=== PATIENT | male | born 1980 | race Caucasian/White ===

== ENCOUNTER 2017-11-17 05:47 | Observation (INO) ==
[2017-11-17 06:56] LABS: Basophils % 0.4 %; Eosinophils % 0.3 %; Hematocrit 47.8 % (37.5-50.1); Hemoglobin 16.6 g/dL (12.9-16.9); Immature Granulocytes % 0.4 % (0-4); Lymphocytes # 1.1 K/mcL (0.6-4.6); Lymphocytes % 13.6 %; Mean Corpuscular HGB Conc 34.7 g/dL (31.6-35.5); Mean Corpuscular Hemoglobin 31.1 pg (28.0-33.3); Mean Corpuscular Volume 89.5 fL (83.0-100.0); Mean Platelet Volume 10.3 fL (9.4-12.4); Monocytes # 0.8 K/mcL (0.0-1.3); Monocytes % 10.2 %; Neutrophils # 5.8 K/mcL (1.6-8.9); Platelet Count 186 K/mcL (140-400); Red Blood Count 5.34 M/mcL (4.19-5.50); Red Cell Distribution Width 13.2 % (11.5-14.5); Segmented Neutrophils % 75.1 %
--- NOTE | 2017-11-17 07:01 | Emergency Department Note ---
Disposition Clinical Impression: FABRICE (acute kidney injury) Disposition: Admitted As Inpatient Condition: Fair Referrals: Julissa Sahu CNP [Primary Care Provider] - Forms: ED Satisfaction Letter General Adult HPI - General Chief complaint: ED Nausea/Vomiting/Diarrhea Stated complaint: dizziness,vomiting Time Seen by Provider: 11/17/17 06:38 Source: patient Mode of arrival: ambulatory Limitations: no limitations Nursing Notes Reviewed: Yes Vital Signs Reviewed: Yes - History of Present Illness HPI Narrative: 37 year old male presents with dizziness and nausea. pt worked outside yesterday with temperature 90 degrees. He sweat a lot. He drank around 10 gallons water yesterday and this morning. Pt woke up this morning with dizziness , nausea and severe muscle cramping. No vomiting. Onset (ago): hour(s) (4) Pain Scale: 5 - Related Data Home Medications Medication Instructions Recorded Confirmed Lisinopril [Zestril] 10 mg PO DAILY 04/21/16 11/17/17 Allergies Allergy/AdvReac Type Severity Reaction Status Date / Time No Known Allergies Allergy Verified 04/21/16 19:00 Constitutional: Denies: fever, chills, weakness, weight change Eyes: Denies: eye pain, eye discharge, vision change ENT ED: Denies: ear pain, throat pain, dental pain, hearing loss, epistaxis, congestion, dysphagia Cardiovascular: Denies: chest pain, palpitations, dyspnea on exertion, edema, syncope Respiratory: Denies: cough, dyspnea, wheezes, hemoptysis, stridor Gastrointestinal: Denies: abdominal pain, nausea, vomiting, diarrhea, constipation, hematemesis, melena, hematochezia Genitourinary: Denies: urgency, dysuria, frequency, hematuria Musculoskeletal: Denies: back pain, neck pain, arthralgia, myalgia Integumentary: Denies: rash, abrasion, lesions Neurological: Denies: headache, weakness, numbness, paresthesias, confusion, abnormal gait, vertigo Psychiatric: Denies: anxiety, depression, suicidal thoughts, homicidal thoughts , auditory hallucinations, visual hallucinations Endocrine: Denies: fatigue Hematological/Lymphatic: Denies: easy bleeding, easy bruising Allergic/Immunologic: Denies: facial swelling, urticaria Past Medical History - Past Medical History Medical history: Reports: hypertension Psychiatric history: Reports: no psych history - Social History Smoking Status: Never smoker Smokeless Tobacco Status: No Alcohol use: Reports: none Drug use: Reports: none Physical Exam - General Limitations: no limitations General appearance: alert - Head Head exam: atraumatic, normocephalic, normal inspection - Eye Eye exam: Present: normal appearance, PERRL, EOMI - ENT ENT exam: normal exam, normal oropharynx, mucous membranes moist - Neck Neck exam: Present: normal inspection, full ROM, trachea midline - Chest Chest inspection: Present: normal inspection, symmetric chest wall rise - Respiratory Respiratory exam: Present: normal lung sounds bilaterally - Cardiovascular Cardiovascular exam: Present: regular rate, normal rhythm, normal heart sounds - Abdominal Exam Abdominal exam: Present: soft, Non-Tender. Absent: tenderness, distention, guarding, rebound, rigidity - Extremities Exam Extremities exam: Present: normal inspection, full ROM. Absent: tenderness, pedal edema - Back Exam Back exam: Present: normal inspection, full ROM. Absent: tenderness - Neurological Exam Neurological exam: Present: alert, oriented X3 - Psychiatric Psychiatric exam: Present: normal affect, normal mood - Skin Skin exam: Present: warm, dry, intact, normal color Course Vital Signs Temperature 97.7 F 11/17/17 05:55 Pulse Rate 110 11/17/17 05:55 Respiratory Rate 20 11/17/17 05:55 Blood Pressure 127/83 11/17/17 05:55 O2 Sat by Pulse Oximetry 100 11/17/17 05:55 Temperature 97.7 F 11/17/17 05:55 Pulse Rate 63 11/17/17 10:14 Respiratory Rate 18 11/17/17 10:14 Blood Pressure 135/93 11/17/17 10:14 O2 Sat by Pulse Oximetry 100 11/17/17 10:14 Oxygen Delivery Oxygen Delivery Room Air Medical Decision Making - [facility] Narrative Medical decision making narrative: 37 year old male presents with dizziness, nausea and muscle cramps today. Pt reported possible dehydration and drank 10 gallons of water. Pt has benign physical exam. Labs: creatine 2.5. with lower sodium and chloride. slightly elevated CK level. Impression: acute renal failure. Pt will be admit to observation. IV fluids started in ER. Dr. Tobias saw the patient and agrees the above plan. - Lab Data Result diagrams: 11/17/17 06:10 11/17/17 06:10 Lab Results 11/17/17 11/17/17 11/17/17 Range/Units 05:54 06:10 06:10 WBC 7.7 (4.3-11.1) K/mcL RBC 5.34 (4.19-5.50) M/mcL Hgb 16.6 (12.9-16.9) g/dL Hct 47.8 (37.5-50.1) % MCV 89.5 (83.0-100.0) fL MCH 31.1 (28.0-33.3) pg MCHC 34.7 (31.6-35.5) g/dL RDW 13.2 (11.5-14.5) % Plt Count 186 (140-400) K/mcL MPV 10.3 (9.4-12.4) fL Immature Gran % 0.4 (0-4) % Seg Neutrophils % 75.1 % Lymphocytes % 13.6 % Monocytes % 10.2 % Eosinophils % 0.3 % Basophils % 0.4 % Neutrophils # 5.8 (1.6-8.9) K/mcL Lymphocytes # 1.1 (0.6-4.6) K/mcL Monocytes # 0.8 (0.0-1.3) K/mcL Eosinophils # 0.0 (0.0-0.6) K/mcL Basophils # 0.0 (0.0-0.2) K/mcL Sodium 129 L (136-145) mEq/L Potassium 3.5 (3.5-5.1) mEq/L Chloride 87 L (98-107) mEq/L Carbon Dioxide 22 L (23-29) mEq/L BUN 38 H (6-20) mg/dL Creatinine 2.56 H (0.70-1.30) mg/dL Est GFR ( Amer) 34 L (> 60) Est GFR (Non-Af Amer) 28 L (> 60) BUN/Creatinine Ratio 15 (6-26) Glucose 145 H (70-105) mg/dL POC Glucose 144 H (70-99) mg/dL Calculated Osmolality 280 (280-300) Calcium 10.6 H (8.6-10.3) mg/dL Magnesium (1.6-2.6) mg/dL Total Bilirubin 1.3 H (0.3-1.0) mg/dL AST 135 H (13-39) Units/L ALT 66 H (7-52) Units/L Alkaline Phosphatase 95 (34-104) Units/L Creatine Kinase (30-223) Units/L Serum Total Protein 8.3 (6.4-8.9) g/dL Albumin 5.5 (3.5-5.7) g/dL Globulin 2.8 (2.4-3.5) g/dL Albumin/Globulin Ratio 2.0 (1.1-2.2) Urine Color (Yellow) Urine Clarity (Clear) Urine pH (5.0-8.0) pH Units Ur Specific [place] (1.010-1.025) Urine Protein (Neg-Trace) mg/dL Urine Glucose (UA) (Normal) mg/dL Urine Ketones (Negative) mg/dL Urine Blood (Negative) Urine Nitrite (Negative) Urine Bilirubin (Negative) Urine Urobilinogen (Normal) mg/dL Ur Leukocyte Esterase (Negative) Urine Microscopic RBC (0-3) per hpf Urine Microscopic WBC (0-3) per hpf Ur Squamous Epith Cells (None-Few) per lpf Calcium Oxalate Crystal Urine Bacteria (None-Few) per hpf Hyaline Casts (None-Few) per lpf Urine Sperm Ur Culture Indicated? (NO) 11/17/17 11/17/17 Range/Units 07:00 09:23 WBC (4.3-11.1) K/mcL RBC (4.19-5.50) M/mcL Hgb (12.9-16.9) g/dL Hct (37.5-50.1) % MCV (83.0-100.0) fL MCH (28.0-33.3) pg MCHC (31.6-35.5) g/dL RDW (11.5-14.5) % Plt Count (140-400) K/mcL MPV (9.4-12.4) fL Immature Gran % (0-4) % Seg Neutrophils % % Lymphocytes % % Monocytes % % Eosinophils % % Basophils % % Neutrophils # (1.6-8.9) K/mcL Lymphocytes # (0.6-4.6) K/mcL Monocytes # (0.0-1.3) K/mcL Eosinophils # (0.0-0.6) K/mcL Basophils # (0.0-0.2) K/mcL Sodium (136-145) mEq/L Potassium (3.5-5.1) mEq/L Chloride (98-107) mEq/L Carbon Dioxide (23-29) mEq/L BUN (6-20) mg/dL Creatinine (0.70-1.30) mg/dL Est GFR ( Amer) (> 60) Est GFR (Non-Af Amer) (> 60) BUN/Creatinine Ratio (6-26) Glucose (70-105) mg/dL POC Glucose (70-99) mg/dL Calculated Osmolality (280-300) Calcium (8.6-10.3) mg/dL Magnesium 2.0 (1.6-2.6) mg/dL Total Bilirubin (0.3-1.0) mg/dL AST (13-39) Units/L ALT (7-52) Units/L Alkaline Phosphatase (34-104) Units/L Creatine Kinase 310 H (30-223) Units/L Serum Total Protein (6.4-8.9) g/dL Albumin (3.5-5.7) g/dL Globulin (2.4-3.5) g/dL Albumin/Globulin Ratio (1.1-2.2) Urine Color Yellow (Yellow) Urine Clarity Hazy (Clear) Urine pH 5.5 (5.0-8.0) pH Units Ur Specific [place] 1.023 (1.010-1.025) Urine Protein 100 H (Neg-Trace) mg/dL Urine Glucose (UA) Normal (Normal) mg/dL Urine Ketones Trace H (Negative) mg/dL Urine Blood Trace H (Negative) Urine Nitrite Negative (Negative) Urine Bilirubin Small H (Negative) Urine Urobilinogen Normal (Normal) mg/dL Ur Leukocyte Esterase Negative (Negative) Urine Microscopic RBC 15-30 H (0-3) per hpf Urine Microscopic WBC 5-15 H (0-3) per hpf Ur Squamous Epith Cells Many H (None-Few) per lpf Calcium Oxalate Crystal Present Urine Bacteria None Seen (None-Few) per hpf Hyaline Casts Many H (None-Few) per lpf Urine Sperm Present Ur Culture Indicated? NO (NO)
[2017-11-17 07:09] LABS: Bilirubin,Urine Small (Negative); Blood,Urine Trace (Negative); Color,Urine Yellow (Yellow); Glucose,Urine (UA) Normal (Normal); Ketones,Urine Trace mg/dL (Negative); Leukocyte Esterase,Urine Negative (Negative); Nitrite,Urine Negative (Negative); PH,Urine 5.5 pH Units (5.0-8.0); Protein,Urine 100 mg/dL (Neg-Trace); Specific Gravity,Urine 1.023 (1.010-1.025); Urobilinogen,Urine Normal (Normal)
[2017-11-17 07:11] LABS: Bacteria,Urine None Seen per hpf (None-Few); Clarity,Urine Hazy (Clear); RBC,Urine 15-30 per hpf (0-3); Squamous Epithelial Cell,Urine Many per lpf (None-Few)
[2017-11-17 07:28] LABS: Albumin 5.5 g/dL (3.5-5.7); Bilirubin,Total 1.3 mg/dL (0.3-1.0); Calcium 10.6 mg/dL (8.6-10.3); Globulin 2.8 g/dL (2.4-3.5); Potassium 3.5 mEq/L (3.5-5.1); Total Protein 8.3 g/dL (6.4-8.9)
[2017-11-17 07:37] LABS: Hyaline Casts,Urine Many per lpf (None-Few)
[2017-11-17] MEDS ORDERED: 0.9 % Sodium Chloride 1,000 ML IVC ONE ×2 (07:39→09:00)
[2017-11-17 07:41] LABS: Calcium Oxalate Crystals,Urine Present
[2017-11-17 07:42] LABS: Sperm,Urine Present
--- NOTE | 2017-11-17 09:23 | Emergency Department Note ---
Disposition Clinical Impression: FABRICE (acute kidney injury) Disposition: Still a Patient Referrals: Julissa Sahu CNP [Primary Care Provider] - Forms: ED Satisfaction Letter General Adult HPI - General Chief complaint: ED Nausea/Vomiting/Diarrhea Stated complaint: dizziness,vomiting Time Seen by Provider: 11/17/17 06:38 Source: patient Mode of arrival: ambulatory Limitations: no limitations - History of Present Illness Pain Scale: 5 - Related Data Home Medications Medication Instructions Recorded Confirmed Lisinopril [Zestril] 10 mg PO DAILY 04/21/16 04/21/16 Previous Rx's Medication Instructions Recorded HYDROcodone/Acet 5/325 mg [[place] 1 tab PO Q6H PRN #10 tab 04/21/16 5-325 mg] Naproxen [Naprosyn] 500 mg PO BID 10 Days tablet 04/21/16 Allergies Allergy/AdvReac Type Severity Reaction Status Date / Time No Known Allergies Allergy Verified 04/21/16 19:00 Past Medical History - Past Medical History Medical history: Reports: hypertension Psychiatric history: Reports: no psych history - Social History Smoking Status: Never smoker Smokeless Tobacco Status: No Alcohol use: Reports: none Drug use: Reports: none Physical Exam - General Limitations: no limitations General appearance: alert Course Vital Signs Temperature 97.7 F 11/17/17 05:55 Pulse Rate 110 11/17/17 05:55 Respiratory Rate 20 11/17/17 05:55 Blood Pressure 127/83 11/17/17 05:55 O2 Sat by Pulse Oximetry 100 11/17/17 05:55 Temperature 97.7 F 11/17/17 05:55 Pulse Rate 75 11/17/17 08:10 Respiratory Rate 18 11/17/17 08:10 Blood Pressure 144/86 11/17/17 08:10 O2 Sat by Pulse Oximetry 100 11/17/17 08:10 Oxygen Delivery Oxygen Delivery Room Air Medical Decision Making - Lab Data Result diagrams: 11/17/17 06:10 11/17/17 06:10 Lab Results 11/17/17 11/17/17 11/17/17 Range/Units 05:54 06:10 06:10 WBC 7.7 (4.3-11.1) K/mcL RBC 5.34 (4.19-5.50) M/mcL Hgb 16.6 (12.9-16.9) g/dL Hct 47.8 (37.5-50.1) % MCV 89.5 (83.0-100.0) fL MCH 31.1 (28.0-33.3) pg MCHC 34.7 (31.6-35.5) g/dL RDW 13.2 (11.5-14.5) % Plt Count 186 (140-400) K/mcL MPV 10.3 (9.4-12.4) fL Immature Gran % 0.4 (0-4) % Seg Neutrophils % 75.1 % Lymphocytes % 13.6 % Monocytes % 10.2 % Eosinophils % 0.3 % Basophils % 0.4 % Neutrophils # 5.8 (1.6-8.9) K/mcL Lymphocytes # 1.1 (0.6-4.6) K/mcL Monocytes # 0.8 (0.0-1.3) K/mcL Eosinophils # 0.0 (0.0-0.6) K/mcL Basophils # 0.0 (0.0-0.2) K/mcL Sodium 129 L (136-145) mEq/L Potassium 3.5 (3.5-5.1) mEq/L Chloride 87 L (98-107) mEq/L Carbon Dioxide 22 L (23-29) mEq/L BUN 38 H (6-20) mg/dL Creatinine 2.56 H (0.70-1.30) mg/dL Est GFR ( Amer) 34 L (> 60) Est GFR (Non-Af Amer) 28 L (> 60) BUN/Creatinine Ratio 15 (6-26) Glucose 145 H (70-105) mg/dL POC Glucose 144 H (70-99) mg/dL Calculated Osmolality 280 (280-300) Calcium 10.6 H (8.6-10.3) mg/dL Total Bilirubin 1.3 H (0.3-1.0) mg/dL AST 135 H (13-39) Units/L ALT 66 H (7-52) Units/L Alkaline Phosphatase 95 (34-104) Units/L Serum Total Protein 8.3 (6.4-8.9) g/dL Albumin 5.5 (3.5-5.7) g/dL Globulin 2.8 (2.4-3.5) g/dL Albumin/Globulin Ratio 2.0 (1.1-2.2) Urine Color (Yellow) Urine Clarity (Clear) Urine pH (5.0-8.0) pH Units Ur Specific [place] (1.010-1.025) Urine Protein (Neg-Trace) mg/dL Urine Glucose (UA) (Normal) mg/dL Urine Ketones (Negative) mg/dL Urine Blood (Negative) Urine Nitrite (Negative) Urine Bilirubin (Negative) Urine Urobilinogen (Normal) mg/dL Ur Leukocyte Esterase (Negative) Urine Microscopic RBC (0-3) per hpf Urine Microscopic WBC (0-3) per hpf Ur Squamous Epith Cells (None-Few) per lpf Calcium Oxalate Crystal Urine Bacteria (None-Few) per hpf Hyaline Casts (None-Few) per lpf Urine Sperm Ur Culture Indicated? (NO) 11/17/17 Range/Units 07:00 WBC (4.3-11.1) K/mcL RBC (4.19-5.50) M/mcL Hgb (12.9-16.9) g/dL Hct (37.5-50.1) % MCV (83.0-100.0) fL MCH (28.0-33.3) pg MCHC (31.6-35.5) g/dL RDW (11.5-14.5) % Plt Count (140-400) K/mcL MPV (9.4-12.4) fL Immature Gran % (0-4) % Seg Neutrophils % % Lymphocytes % % Monocytes % % Eosinophils % % Basophils % % Neutrophils # (1.6-8.9) K/mcL Lymphocytes # (0.6-4.6) K/mcL Monocytes # (0.0-1.3) K/mcL Eosinophils # (0.0-0.6) K/mcL Basophils # (0.0-0.2) K/mcL Sodium (136-145) mEq/L Potassium (3.5-5.1) mEq/L Chloride (98-107) mEq/L Carbon Dioxide (23-29) mEq/L BUN (6-20) mg/dL Creatinine (0.70-1.30) mg/dL Est GFR ( Amer) (> 60) Est GFR (Non-Af Amer) (> 60) BUN/Creatinine Ratio (6-26) Glucose (70-105) mg/dL POC Glucose (70-99) mg/dL Calculated Osmolality (280-300) Calcium (8.6-10.3) mg/dL Total Bilirubin (0.3-1.0) mg/dL AST (13-39) Units/L ALT (7-52) Units/L Alkaline Phosphatase (34-104) Units/L Serum Total Protein (6.4-8.9) g/dL Albumin (3.5-5.7) g/dL Globulin (2.4-3.5) g/dL Albumin/Globulin Ratio (1.1-2.2) Urine Color Yellow (Yellow) Urine Clarity Hazy (Clear) Urine pH 5.5 (5.0-8.0) pH Units Ur Specific [place] 1.023 (1.010-1.025) Urine Protein 100 H (Neg-Trace) mg/dL Urine Glucose (UA) Normal (Normal) mg/dL Urine Ketones Trace H (Negative) mg/dL Urine Blood Trace H (Negative) Urine Nitrite Negative (Negative) Urine Bilirubin Small H (Negative) Urine Urobilinogen Normal (Normal) mg/dL Ur Leukocyte Esterase Negative (Negative) Urine Microscopic RBC 15-30 H (0-3) per hpf Urine Microscopic WBC 5-15 H (0-3) per hpf Ur Squamous Epith Cells Many H (None-Few) per lpf Calcium Oxalate Crystal Present Urine Bacteria None Seen (None-Few) per hpf Hyaline Casts Many H (None-Few) per lpf Urine Sperm Present Ur Culture Indicated? NO (NO) Attestation Statement - Attestation Attestation: I examined this patient and my medical decision-making was reviewed with the Resident Physician. I agree with the documented findings, disposition and treatment plan as described except to the extent set forth below. 37 yo M here for muscle aches, dizziness. 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 After working for 3-4 hours he states he was getting dehydrated. He was attempting to drink water and states he drank at least 10 gallons of water yesterday. He presents our ER today for muscle aches and fatigue. It does appear that he has acute kidney injury. We will add on a magnesium as well as a CK to rule out any rhabdomyolysis. He is receiving more IV fluids here. Disposition is pending at this time.
[2017-11-17] MEDS ORDERED: Naloxone 0.4 MG/ML INJ IVP PRN (10:48)
--- NOTE | 2017-11-17 10:53 | Internal Med History&Physical ---
Date of Encounter: 11/17/17 Time of Encounter: 10:52 Internal Medicine - H&P: HPI Chief complaint: Muscle aches, dizziness Admitted From: Home Plans for Post Hospital Care: Home History of present illness: Mr. Horton is a 37 year old male with PMH of HTN on Lisinopril, occasionally take excedrin for headcahes, who presented with dizziness and joint aches and muscle aches. 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 He denies fever or chills, admitted and will review she denies any focal muscle pain or aches, he denies shortness of breath, chest pain , palpitations, dizziness or diaphoresis. He reports noticing a change in his urine color to a darker brown, he denies tiffany hematuria and denies skin rash He denies a hx of trauma preceding his muscle aches, he denies alcohol use, denies illicit drug use. He denies any vomiting or nausea, no change in bowel movements. Review of system is otherwise unremarkable. In the emergency room, patient was found with acute kidney injury with transaminitis, hyponatremia and rhabdomyolysis. The patient will be placed on observation for rhabdomyolysis with acute kidney injury He is full code Past Med Surg Social Fam HX - Past Medical History Medical history: hypertension Psychiatric history: no psych history - Social History Smoking Status: Never smoker Smokeless Tobacco Status: No Alcohol use: none Drug use: none Internal Medicine - H&P: Meds Lisinopril [Zestril] 10 mg PO DAILY 04/21/16 [History] 3 Allergy/AdvReac Type Severity Reaction Status Date / Time No Known Allergies Allergy Verified 04/21/16 19:00 All Systems PM: A 10-system review of systems was performed and is negative for pertinent findings except as documented above in the HPI. - Constitutional Constitutional: as per HPI - EENT Eyes: as per HPI Ears: as per HPI Nose, mouth and throat: as per HPI - Cardiovascular Cardiovascular ROS IM: as per HPI - Respiratory Respiratory: as per HPI - Gastrointestinal Gastrointestinal: as per HPI - Musculoskeletal Musculoskeletal ROS IM: as per HPI - Integumentary Integumentary IM: as per HPI - Neurological Neurological ROS: as per HPI - Hematologic/Lymphatic Hematologic/Lymphatic: as per HPI - Constitutional Vitals: Temp Pulse Resp BP Pulse Ox 97.7 F 63 18 135/93 100 11/17/17 05:55 11/17/17 10:14 11/17/17 10:14 11/17/17 10:14 11/17/17 10:14 General appearance: Present: A&O X 3, pleasant, no acute distress Exam: see detailed examination below - Head Head exam: Present: atraumatic, normocephalic - Eye Eye exam: Present: PERRL, conjuntiva pink, sclera anicteric Pupils: Present: PERRL - Neck Neck exam general surgery: Present: supple, trachea midline. Absent: lymphadenopathy - Respiratory Respiratory exam: Present: CTAB. Absent: accessory muscle use, rales, rhonchi, wheezes - Cardiovascular Cardiovascular exam: Present: RRR, +S1, +S2. Absent: diastolic murmur, gallop, rubs, systolic murmur - GI/Abdominal GI/Abdominal exam: Present: normal bowel sounds, soft, no peritoneal signs. Absent: distended, tenderness - Extremities Exam Extremities exam: Present: warm, radial pulses palpable and symmetrical. Absent : calf tenderness, cyanotic, pedal edema - Neurological Exam Neurological exam: Present: CN II-XII intact, oriented X3, no focal deficits. Absent: pronater drift, facial droop, speech deficit - Skin Skin exam: Present: dry, intact Internal Med - H&P Results - Labs CBC & Chem 7: 11/17/17 06:10 11/17/17 06:10 Labs: Short CBC 11/17/17 Range/Units 06:10 WBC 7.7 (4.3-11.1) K/mcL Hgb 16.6 (12.9-16.9) g/dL Hct 47.8 (37.5-50.1) % Plt Count 186 (140-400) K/mcL Neutrophils # 5.8 (1.6-8.9) K/mcL BMP 11/17/17 06:10 Sodium 129 L Potassium 3.5 Chloride 87 L Carbon Dioxide 22 L BUN 38 H Creatinine 2.56 H Glucose 145 H Calcium 10.6 H Liver Function 11/17/17 Range/Units 06:10 Total Bilirubin 1.3 H (0.3-1.0) mg/dL AST 135 H (13-39) Units/L ALT 66 H (7-52) Units/L Alkaline Phosphatase 95 (34-104) Units/L Albumin 5.5 (3.5-5.7) g/dL Urine 11/17/17 Range/Units 07:00 Urine Color Yellow (Yellow) Urine Clarity Hazy (Clear) Urine pH 5.5 (5.0-8.0) pH Units Ur Specific [place] 1.023 (1.010-1.025) Urine Protein 100 H (Neg-Trace) mg/dL Urine Glucose (UA) Normal (Normal) mg/dL - Assessment and plan (1) Rhabdomyolysis Current Visit: Yes Status: Acute Assessment and plan: Patient presented with generalized diffuse muscle aches after having worked in 90-100 degrees throughout the day yesterday, associated with dehydration and acute kidney injury. Creatinine kinase on admission 380 with associated transaminitis No focal muscle pain on review Continue aggressive IVF hydration MOnitor I and O Trend CK Qualifiers: Rhabdomyolysis type: non-traumatic Qualified Code(s): M62.82 - Rhabdomyolysis (2) FABRICE (acute kidney injury) Current Visit: Yes Status: Acute Assessment and plan: Due to rhabdomylysis Hold NSAIDS, Lisinopril Continue IVF hydration Strict I and OS Avoid nephrotoxins Repeat Comprehensive panel and CK with a.m labs (3) HTN (hypertension) Current Visit: Yes Status: Chronic Assessment and plan: Hold home ACEI Amlodipine 5mg daily , continue to monitor Qualifiers: Hypertension type: essential hypertension Qualified Code(s): I10 - Essential (primary) hypertension (4) Hyponatremia Current Visit: Yes Status: Acute Assessment and plan: Na 129, hypoosmolar, hypovolemia Continue to monitor - Time Spent With Patient Total time spent is greater than 50% in coordination of care (as documented) at patient's floor/unit and/or counseling patient:
[2017-11-17] MEDS: amLODIPine 5 MG TABLET PO SCH (13:02)
[2017-11-17] MEDS: 0.9 % Sodium Chloride 1,000 ML IVC SCH ×2 (13:02→21:07)
[2017-11-18 04:24] LABS: Basophils % 0.5 %; Eosinophils # 0.1 K/mcL (0.0-0.6); Eosinophils % 1.2 %; Hematocrit 37.1 % (37.5-50.1); Immature Granulocytes % 0.2 % (0-4); Lymphocytes # 0.8 K/mcL (0.6-4.6); Lymphocytes % 20.6 %; Mean Corpuscular HGB Conc 32.6 g/dL (31.6-35.5); Mean Corpuscular Hemoglobin 30.5 pg (28.0-33.3); Mean Corpuscular Volume 93.5 fL (83.0-100.0); Mean Platelet Volume 10.6 fL (9.4-12.4); Monocytes # 0.7 K/mcL (0.0-1.3); Monocytes % 16.2 %; Neutrophils # 2.5 K/mcL (1.6-8.9); Platelet Count 123 K/mcL (140-400); Red Blood Count 3.97 M/mcL (4.19-5.50); Red Cell Distribution Width 13.4 % (11.5-14.5); Segmented Neutrophils % 61.3 %
[2017-11-18 04:31] LABS: Hemoglobin 12.1 g/dL (12.9-16.9)
[2017-11-18] MEDS: amLODIPine 5 MG TABLET PO SCH (08:26)
[2017-11-18 08:33] LABS: Alanine Aminotransferase 116 Units/L (7-52); Albumin 4.2 g/dL (3.5-5.7); Albumin/Globulin Ratio 2.2 (1.1-2.2); Alkaline Phosphatase 69 Units/L (34-104); Aspartate Amino Transferase 195 Units/L (13-39); BUN/Creatinine Ratio 24 (6-26); Bilirubin,Direct 0.1 mg/dL (0.0-0.2); Bilirubin,Indirect 0.7 mg/dL (0.0-1.2); Bilirubin,Total 0.8 mg/dL (0.3-1.0); Blood Urea Nitrogen 17 mg/dL (6-20); Carbon Dioxide 24 mEq/L (23-29); Chloride 104 mEq/L (98-107); Creatine Kinase 357 Units/L (30-223); Globulin 1.9 g/dL (2.4-3.5); Glucose 88 mg/dL (70-105); Osmolality,Calculated 281 (280-300); Potassium 4.8 mEq/L (3.5-5.1); Sodium 135 mEq/L (136-145); Total Protein 6.1 g/dL (6.4-8.9); eGFR For Non-African Americans > 60 (> 60)
[2017-11-18 11:23] VITALS: BP 122/74
--- NOTE | 2017-11-18 11:26 | Discharge Summary ---
- NOTES TO OUTPATIENT PROVIDER Notes to Outpatient Provider: Recommend repeat CMP/LFTs/CK and BP recheck within 1 week. Lisinopril was stopped and he was started on low-dose amlodipine Date of Encounter: 11/18/17 Time of Encounter: 11:23 - Discharge Diagnosis (1) FABRICE (acute kidney injury) Priority: Primary Status: Resolved (2) Rhabdomyolysis Priority: Primary Status: Acute Qualifiers: Rhabdomyolysis type: non-traumatic Qualified Code(s): M62.82 - Rhabdomyolysis (3) HTN (hypertension) Priority: Secondary Status: Chronic Qualifiers: Hypertension type: essential hypertension Qualified Code(s): I10 - Essential (primary) hypertension (4) Hyponatremia Priority: Primary Status: Acute Hospital course: Mr. Horton is a 37 year old male with H hypertension presented to [facility] 11/17/2017 with complaints of dizziness and joint/ muscle aches. He was placed in observation status for further workup and treatment. 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 Use of MAURICE likely also contributed to FABRICE. His renal function improved with IV fluids and stopping MAURICE. Clinically is objectively improved at time of discharge; patient returned to baseline and requested discharge home. On day of discharge she was LC 4, had no complaints. Specifically denied abdominal pain, no nausea vomiting diarrhea. No muscle aches and myalgias. He was tolerating a regular diet. Of note LFTs and creatinine kinases slightly higher than on arrival however considering significant clinical/subjective improvement and is reasonable to discharge home with close outpatient follow-up. Patient advised on adequate hydration and to follow-up with PCP within 3-5 days for repeat CMP, LFT and CK. He was advised to stop taking MAURICE and was started on low-dose amlodipine. Discharge discussed with: patient - Time Spent with Patient Total time spent providing and/or coordinating discharge services: - Discharge Medications Prescriptions: amLODIPine [Norvasc] 5 mg PO DAILY #30 tablet Home Medications: amLODIPine [Norvasc] 5 mg PO DAILY #30 tablet 11/18/17 [Rx] Allergies/Adverse Reactions: 3 Allergy/AdvReac Type Severity Reaction Status Date / Time No Known Allergies Allergy Verified 04/21/16 19:00 Date of admission: 11/17/17 11:02 Primary care physician: Julissa Sahu CNP Discharging clinician: Jazzmine Chi Anticipated date of discharge: 11/18/17 - Constitutional Vitals: Temp Pulse Resp BP Pulse Ox 98.2 F 64 17 134/69 98 11/18/17 07:38 11/18/17 07:38 11/18/17 07:38 11/18/17 07:38 11/18/17 07:38 General appearance: Present: A&O X 3, pleasant, no acute distress Exam: . - Head Head exam: Present: atraumatic, normocephalic - Eye Eye exam: Present: PERRL, conjuntiva pink, sclera anicteric Pupils: Present: PERRL - Neck Neck exam general surgery: Present: supple, trachea midline. Absent: lymphadenopathy - Respiratory Respiratory exam: Present: CTAB. Absent: accessory muscle use, rales, rhonchi, wheezes - Cardiovascular Cardiovascular exam: Present: RRR, +S1, +S2. Absent: diastolic murmur, gallop, rubs, systolic murmur - GI/Abdominal GI/Abdominal exam: Present: normal bowel sounds, soft, no peritoneal signs. Absent: distended, tenderness - Extremities Exam Extremities exam: Present: warm, radial pulses palpable and symmetrical. Absent : calf tenderness, cyanotic, pedal edema - Neurological Exam Neurological exam: Present: CN II-XII intact, oriented X3, no focal deficits. Absent: pronater drift, facial droop, speech deficit - Skin Skin exam: Present: dry, intact - Patient Status Disposition: Home, Self-Care Condition: Good Functional capacity at discharge: independent ambulation Overall status at discharge: patient is back to baseline - Discharge Instructions Instructions: Acute Kidney Injury (DC), Amlodipine (By mouth), Hypertension (DC ), Rhabdomyolysis (DC) Follow Up With: Julissa Sahu CNP [Primary Care Provider] - 11/23/17 10:30 am - Diet and Activity Activity: increase activity as tolerated Diet: advance to your usual diet
[2017-11-18 14:54] LABS: Estimated Average Glucose 100 mg/dl; Hemoglobin A1C 5.1 %
== END 2017-11-18 11:44 | disposition home or self-care (01) ==
LOC: 3BNU 05:47 → EMEROOARM 05:47 → 3BNU 11:52
PROVIDERS: ADMIT Internal Medicine; ATTEND Internal Medicine